=== PATIENT | female | born 1945 | race Caucasian/White ===

== ENCOUNTER 2017-12-26 05:25 | Inpatient (IN) | payer OTHER, MEDICARE ==
[2017-12-20 10:11] LABS: HEMATOCRIT 38.9 % (37.0-47.0); HEMOGLOBIN 13.2 gm/dL (12.0-15.0); MCHC 33.9 g/dL (28.0-37.0); MCV 91.4 fL (80.0-100.0); RBC 4.25 mil/uL (4.20-5.00); RDW 13.4 % (10.5-14.5); WBC 7.3 thou/uL (4.0-11.0)
[2017-12-20 10:34] LABS: PROTIME 10.4 Seconds (9.3-11.4)
[2017-12-20 10:37] LABS: ALBUMIN 3.7 g/dL (3.4-5.0); CALCIUM 9.2 mg/dL (8.5-10.1); CREATININE 0.7 mg/dL (0.6-1.0)
[2017-12-20 12:27] LABS: URINE BILIRUBIN NEGATIVE (Negative); URINE BLOOD TRACE (Negative); URINE CLARITY CLEAR; URINE COLOR YELLOW; URINE GLUCOSE-RANDOM* NEGATIVE (Negative); URINE KETONES NEGATIVE (Negative); URINE LEUKOCYTES-REFLEX TRACE (Negative); URINE NITRITE-REFLEX NEGATIVE (Negative); URINE PROTEIN (DIPSTICK) NEGATIVE (Negative); URINE SPECIFIC GRAVITY <= 1.005 (1.005-1.035); URINE UROBILINOGEN 0.2 E.U./dl (0.2-1.0)
[~2017-12-26] VITALS: Ht 157.5 cm; Wt 63.7 kg
--- NOTE | ~2017-12-26 | EKG ---
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 Assessments: MYA [place] : 1945 Requested By: Jason Jameson Order Number: [id number] MD: Yonatan Waters Measurements Intervals [place] Rate: 60 P: 70 [place]: 168 QRS: -5 QRSD: 103 T: 28 QT: 432 QTc: 432 Interpretive Statements Sinus rhythm No significant abnormality Compared to ECG 01/21/2011 16:50:36 No significant changes Electronically Signed On 12-21-2017 8:01:06 CDT by Yonatan Waters [email or web address] <ELECTRONICALLY SIGNED> By: Yonatan Waters MD, [facility] 12/21/17 0801 1021 1021 Yonatan Waters MD, FACC /EPI
--- NOTE | ~2017-12-26 | O ---
[facility] [place] [address] OPERATIVE REPORT Name: ISH GRIDER I Room #: 150-5 ADM IN M.R.#: [id number] Admission: 12/26/17 Attend Phys: Jason Jameson MD Discharge: Date of : 43 Report #: [id number] THIS REPORT FOR: //name// CC: Ivon Jameson DATE OF SERVICE: 12/26/2017 PREOPERATIVE DIAGNOSIS: Right knee medial compartment osteoarthritis. POSTOPERATIVE DIAGNOSIS: Right knee medial compartment osteoarthritis. PROCEDURE: Right medial compartment knee arthroplasty with Navio computerized assistance. SURGEON: Jason Jamseon MD. SURGICAL GARMENT FITTER: Lena Salazar PA-C. INDICATIONS FOR ASSISTANCE: Throughout the case, extensive retraction and manipulation of the knee were required. This was afforded to me by my bookkeeping assistant. ANESTHESIA: LMA with an adductor canal block. IMPLANTS: [employer] size 2 femoral [place] component with a size 2 tibial component and a size 8 polyethylene. TOURNIQUET TIME: 61 minutes. ESTIMATED BLOOD LOSS: 25 mL. COMPLICATIONS: None. SPECIMENS: None. CONDITION UPON LEAVING THE OPERATING ROOM: Stable. INDICATION FOR PROCEDURE: The patient is a 72-year-old female who has severe right knee medial compartment osteoarthritis. She had failed conservative treatment for this and after discussion with her, she elected for medial compartment arthroplasty. DESCRIPTION OF PROCEDURE: Risks, benefits, alternatives, complications were discussed in detail with the patient including but not limited to risk of anesthesia, risk of damage to nerves, arteries, blood vessels, risk for [facility] [address] [place] [address] OPERATIVE REPORT Name: ISH GRIDER I Room #: 150-5 [facility] IN M.R.#: [id number] Admission: 12/26/17 Attend Phys: Jason Jameson MD Discharge: Date of : 43 Report #: [id number] infection, bleeding, risk for continued knee pain and need for reoperation. Informed consent was obtained from the patient. The right knee was appropriately marked in the preoperative holding area. IV Ancef was given for preoperative antibiotics. An adductor canal block was placed by Anesthesia. She was brought to the operating room and placed in the supine position on the operating room table. LMA anesthesia was induced without complication. Tourniquet was placed on the right thigh. Right lower extremity was prepped and draped in normal sterile fashion. Timeout was performed properly identifying the patient and procedure as well as the instrumentation. All in the operating room were in agreement. Right lower extremity was exsanguinated, tourniquet was inflated. Tourniquet time was 61 minutes. Standard midline approach to knee was made with 10 blade through the skin. Dissection was taken down sharply to the fascia and deep flaps were developed medially and laterally. Fresh 10 blade was used to make a medial parapatellar arthrotomy and the knee was inspected. There was severe medial compartment osteoarthritis with well-maintained lateral compartment. 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 It was decided to proceed with medial compartment arthroplasty. The tibial and femoral reference pins were then placed with a Navio computer assistance guidance, and the medial femur and tibia were then mapped out and data was collected digitally for planning. Intraoperative plan of the femur was for a size 2 and a size 3 tibia allowing for a size 9 polyethylene. Navio bur was then used to remove bone on the femur and the tibia. This was done using the Navio navigation system. After this, trial components were placed. A size 2 tibia and a size 2 femur and a size 8 polyethylene was placed. Knee was then taken through range of motion and found to be stable in flexion and extension both medially and laterally, was well balanced in the knee on the Navio system. Trial components were removed. Bony ends were thoroughly irrigated with normal saline. A final size 2 tibia and a size [address] using standard cementation techniques. While the cement cured, a periarticular injection consisting of morphine, ropivacaine, epinephrine and Toradol was placed around the knee joint. After the cement cured, the tourniquet was deflated. Hemostasis was obtained with Bovie cautery. Final size 8 polyethylene was placed. A gram of vancomycin was placed deep in the knee joint. The fascia was closed with 0 Vicryl, skin was closed with 2-0 Vicryl, 3-0 Monocryl. Dermabond and a RAMEHS dressing were applied. The patient tolerated this procedure well and went to recovery room under care of Anesthesia postoperatively. By: 1709 [id number] Jason Jameson MD /nt
[~2017-12-26 05:25] MED LIST: ASPIR 8181 MG PO; ATIVAN0.5 MG PO; ATIVAN1 MG PO; BENTYL 10 MG CA10 MG PO; CALCIUM500 MG PO; CENTRUM SILVER1 EAC4 PO; CIPRO250 M1 PO; COLACE 100 MG100 MG PO; COUMADIN 5 MG TA5 M1 PO; FENTANYL PA12 MCG/HR TD; FENTANYL PA25 MCG/HR TP; GLYCOLAX POWDER17 G1 PO; HEMORRHOIDAL HC25 MG RE; HYDROCODON-ACE1 EAC7 PO; IBUPROFEN 200200 M1 PO; LIPITOR PO; LIPITOR10 MG; LIPITOR10 MG PO; LOPERAMIDE2 MG PO; LORAZEPAM 0.50.5 MG PO; MOTRIN; MS CONTIN 30 MG30 M1 PO; MUCINEX DM ER1 EACH PO; OMEPRAZOLE PO; OXYCODONE HCL5 M1 PO; OXYCONTIN CR 1010 M1; OXYCONTIN PO; OXYCONTIN20 M1 PO; PHENERGAN25 MG RE; PRILOSEC 20 MG20 MG; REGLAN 5 MG TAB5 M1 PO; REMERON15 MG PO; SYNTHROID75 MCG PO; VITAMIN D-32000 UNIT PO; VITAMINC500 PO; ZANTAC 150MG T150 MG PO; ZOFRAN; ZOFRAN ODT4 MG PO; ZOFRAN4 MG PO; ZOLOFT PO; ZOLOFT20 MG/1 ML; ZOLOFT50 MG PO; domperidone PO
[2017-12-26 13:26] VITALS: BP 147/72
[2017-12-26 19:10] VITALS: BP 134/59
[2017-12-26 19:40] VITALS: BP 111/57
[2017-12-26 20:40] VITALS: BP 119/57
[2017-12-26 23:36] VITALS: BP 114/65
[2017-12-27 03:55] VITALS: BP 115/56; BP 123/60
[2017-12-27 04:53] LABS: HEMOGLOBIN 11.1 gm/dL (12.0-15.0); MCHC 33.7 g/dL (28.0-37.0); MCV 91.9 fL (80.0-100.0); RBC 3.59 mil/uL (4.20-5.00); RDW 13.5 % (10.5-14.5); WBC 7.3 thou/uL (4.0-11.0)
[2017-12-27 07:00] VITALS: BP 110/52
[2017-12-27 15:32] VITALS: BP 115/61
[2017-12-27 20:00] VITALS: BP 115/52
[2017-12-28 03:44] VITALS: BP 115/58
[2017-12-28 05:27] LABS: HEMATOCRIT 34.4 % (37.0-47.0); HEMOGLOBIN 11.6 gm/dL (12.0-15.0); MCH 30.9 pg (26.0-34.0); MCHC 33.6 g/dL (28.0-37.0); MCV 91.9 fL (80.0-100.0); RBC 3.74 mil/uL (4.20-5.00); RDW 13.4 % (10.5-14.5); WBC 7.3 thou/uL (4.0-11.0)
[2017-12-28 07:35] VITALS: BP 115/58
[2017-12-28] MEDS ORDERED: TRI-BUFFERED A325 M1 PO (07:36)
[2017-12-28] MEDS ORDERED: NEURONTIN 300300 M1 PO (07:37)
[2017-12-28] MEDS ORDERED: PERCOCET PO (07:41)
[2017-12-28 13:24] VITALS: BP 115/58
== END 2017-12-28 14:50 | disposition home or self-care (01) | DRG 470 ==
LOC: 4N 05:25 → TBA 05:25 → PRE 05:35 → 4N 18:13
PROVIDERS: Orthopaedic Surgery
PROC: 8E0Y0CZ Robotic Assisted Procedure of Lower Extremity, Open Approach (ICD-10-PCS; principal; 2017-12-26)
PROC: 0SRC0L9 Replacement of Right Knee Joint with Medial Unicondylar Synthetic Substitute, Cemented, Open Approach (ICD-10-PCS; principal; 2017-12-26)
DX: M17.11 Unilateral primary osteoarthritis, right knee (principal); F32.9 Major depressive disorder, single episode, unspecified; E78.5 Hyperlipidemia, unspecified; E03.9 Hypothyroidism, unspecified; K21.9 Gastro-esophageal reflux disease without esophagitis; Z85.048 Personal history of other malignant neoplasm of rectum, rectosigmoid junction, and anus; Z92.3 Personal history of irradiation; Z92.21 Personal history of antineoplastic chemotherapy; Z85.6 Personal history of leukemia; Z90.710 Acquired absence of both cervix and uterus; Z79.899 Other long term (current) drug therapy
CPT/HCPCS: 10790; 50010; 50101; 50415; 50954; 51130; 51225; 51771; 53078; 53370; 54118; 56527; 56528; 57095; 62110; 62900; 70005